=== PATIENT | male | born 1975 | race Caucasian/White ===

== ENCOUNTER 2016-06-09 12:24 | Emergency (ER) | payer BC ==
[~2016-06-09] VITALS: Ht 170.2 cm; Wt 96.2 kg
[~2016-06-09 12:24] MED LIST: BACTRIM DS TAB1 EACH PO; CLEOCIN HCL150 MG PO; NORCO 5-325 TA1 EACH PO
[2016-06-09] MEDS ORDERED: CLEOCIN HCL150 MG PO (13:36)
[2016-06-09] MEDS ORDERED: BACTRIM DS TAB1 EACH PO (13:36)
[2016-06-09] MEDS ORDERED: NORCO 5-325 TA1 EACH PO (13:38)
[2016-06-09 14:35] VITALS: BP 148/99
== END 2016-06-09 14:35 | disposition home or self-care (01) ==
LOC: ER 12:24
DX: S51.851A Open bite of right forearm, initial encounter (principal); S51.811A Laceration without foreign body of right forearm, initial encounter; Z88.0 Allergy status to penicillin; F17.210 Nicotine dependence, cigarettes, uncomplicated; F10.99 Alcohol use, unspecified with unspecified alcohol-induced disorder; W54.0XXA Bitten by dog, initial encounter; Y93.89 Activity, other specified; Y92.89 Other specified places as the place of occurrence of the external cause; Y99.8 Other external cause status